=== PATIENT | male | born 1950 | race Caucasian/White ===

== ENCOUNTER 2025-06-11 17:15 | Emergency (ER) | payer MEDICARE ==
[~2025-06-11] VITALS: Ht 177.8 cm; Wt 127.0 kg
[2025-06-11 18:06] LABS: BASOPHILS ABSOLUTE AUTO 0.10 K/mm3 (0.00-0.23); BASOPHILS PERCENT AUTO 1 % (0-2); EOSINOPHILS ABSOLUTE AUTO 0.46 K/mm3 (0.00-0.68); EOSINOPHILS PERCENT AUTO 4 % (0-6); Hematocrit 38.5 % (37.0-53.0); Hemoglobin 13.2 g/dL (13.5-17.5); IMMATURE GRAN ABSOLUTE AUTO 0.11 K/mm3 (0.00-0.10); IMMATURE GRAN PERCENT AUTO 1 % (0-1); LYMPHOCYTES ABSOLUTE AUTO 3.33 K/mm3 (0.84-5.20); LYMPHOCYTES PERCENT AUTO 32 % (21-46); MONOCYTES ABSOLUTE AUTO 0.79 K/mm3 (0.16-1.47); MONOCYTES PERCENT AUTO 8 % (4-13); Mean Corpuscular HGB Conc 34.3 g/dL (31.5-36.5); Mean Corpuscular Volume 94 fL (80-100); NEUTROPHILS ABSOLUTE AUTO 5.58 K/mm3 (1.96-9.15); NEUTROPHILS PERCENT AUTO 54 % (41-73); NRBC ABSOLUTE 0.00 K/mm3 (0.00-0.02); NRBC Auto 0.0 /100 WBC (0.0-0.2); Platelet Count 190 K/mm3 (150-400); RDW Coefficient Variation 13.1 % (11.7-14.2); RDW Standard Deviation 45.1 fL (35.1-46.3)
[2025-06-11 18:43] LABS: Alanine Aminotransfer (ALT/SGP 36.0 U/L (12-78); Albumin, Blood 3.2 g/dL (3.4-5.0); Albumin/Globulin Ratio 0.9 (0.8-1.8); Anion Gap 7.0 mmol/L (3-11); Aspartate Aminotrans (AST/SGOT 22.0 U/L (12-37); Bilirubin, Total 0.7 mg/dL (0.1-1.0); Blood Urea Nitrogen 19.0 mg/dL (8-24); CO2, Blood 28.0 mmol/L (21-32); Calcium, Blood 8.5 mg/dL (8.5-10.1); Chloride, Blood 107.0 mmol/L (98-108); Creatinine, Blood 1.13 mg/dL (0.60-1.20); Globulin, Blood 3.4 g/dL (2.2-4.0); Glucose, Blood 136.0 mg/dL (70-99); Potassium, Blood 4.0 mmol/L (3.5-5.5); Sodium, Blood 138.0 mmol/L (136-145); Thyroid Stimulating Hormone 3.52 uIU/mL (0.360-4.800); Total Protein, Blood 6.6 g/dL (6.4-8.2)
== END 2025-06-11 19:13 | disposition home or self-care (01) ==
LOC: ER 17:15
PROVIDERS: Student in an Organized Health Care Education/Training Program
DX: I49.3 Ventricular premature depolarization (principal); R00.2 Palpitations; E03.9 Hypothyroidism, unspecified; Z79.890 Hormone replacement therapy
CPT/HCPCS: 71046; 80053; 83880; 84439; 84443; 84484; 85025; 93005; 93010; 99285-25